=== PATIENT | female | born 1965 | race Caucasian/White ===

== ENCOUNTER 2024-12-09 15:46 | Inpatient (IN) | payer SELFPAY ==
[2024-12-09] MEDS ORDERED: Senokot S 8.6-50 MG TAB PO PRN (18:07)
[2024-12-09] MEDS ORDERED: Acetaminophen 325 MG TAB PO PRN (18:07)
[2024-12-09] MEDS ORDERED: Melatonin 3 MG TAB PO PRN (18:07)
[2024-12-09] MEDS ORDERED: Ondansetron PF 4 MG/2 ML Vial IVP PRN (18:07)
[2024-12-09] MEDS ORDERED: Calcium Carbonate 500 MG ChewTAB PO PRN (18:07)
[2024-12-09] MEDS ORDERED: VANCOMYCIN IVPB PRN (18:09)
[2024-12-09 18:30] LABS: #Basophils 0.03 10x3/uL (0.0-0.2); #Eosinophils Less than 0.03 10x3/uL (0.0-0.7); #Monocytes 0.94 10x3/uL (0.11-0.59); #Neutrophils 12.39 10x3/uL (1.40-6.50); %Basophils 0.2 % (0.0-1.0); %Eosinophils 0.1 % (0.0-10.0); %Lymphocytes 11.6 % (21.0-51.0); %Monocytes 6.2 % (0.0-10.0); %Neutrophils 81.3 % (42.0-75.0); Hematocrit 38.3 % (36.0-47.0); Hemoglobin 12.8 g/dL (12.0-16.0); Mean Corpuscular Hemoglobin 28.3 pg (27.0-31.0); Mean Corpuscular Volume 84.7 fL (78.0-98.0); Platelet Count 298 10x3/uL (130-400); Red Blood Cell (RBC) Count 4.52 mill/uL (4.20-5.40); White Blood Cell (WBC) Count 15.23 10x3/uL (4.8-10.8)
[2024-12-09 18:55] LABS: ALT (SGPT) 11 U/L (Less than 34); AST (SGOT) 15 U/L (11-34); Albumin 2.6 g/dL (3.1-4.5); Alkaline Phosphatase 135 U/L (40-110); Anion Gap 16 mmol/L (10-20); BUN (Urea Nitrogen) 21 mg/dL (9.8-20.1); Bilirubin, Total 0.2 mg/dL (0.3-1.2); Calc. Creatinine Clearance 0 mL/min (70-130); Calcium 9.5 mg/dL (7.8-10.44); Carbon Dioxide 29 mmol/L (23-31); Chloride 88 mmol/L (98-107); Globulin 5.1 g/dL (2.4-3.5); Glucose 625 mg/dL (80-115); Potassium 4.4 mmol/L (3.5-5.1); Sodium 129 mmol/L (136-145)
[2024-12-09 18:59] VITALS: BMI 24.2
[2024-12-09] MEDS ORDERED: HumaLOG 300 UNITS/3 ML VIAL SC PRN (19:02)
[2024-12-09] MEDS ORDERED: Glucagon 1 MG/ML KIT IM PRN (19:02)
[2024-12-09] MEDS ORDERED: Dextrose 50% Abboject 50 ML SYRINGE SLOW IVP PRN (19:02)
[2024-12-09] MEDS: Pantoprazole 40 MG DR.TAB PO SCH (19:55)
[2024-12-09] MEDS: Vancomycin 1.5 GM / NS 500ML VIAL-2-BAG IVPB SCH (19:56)
[2024-12-09] MEDS ORDERED: Vancomycin (BATCH) 1.75 GM Premix IVPB SCH (20:00)
[2024-12-09] MEDS ORDERED: Vancomycin 1 GM in Premix 1 BAG IVPB SCH (21:00)
[2024-12-09] MEDS ORDERED: Insulin Glargine 30 UNITS/0.3 ML VIAL SC SCH (21:30)
[2024-12-09] MEDS: Insulin Glargine 30 UNITS/0.3 ML VIAL SC SCH (21:42)
[2024-12-10] MEDS ORDERED: Insulin NPH Human Isophane 100 UNITS/ML (10 ML VIAL) SC SCH (09:00)
[2024-12-10] MEDS: Enoxaparin 40 MG (0.4 mL) SYRINGE SC SCH (10:29)
[2024-12-10] MEDS: Losartan 25 MG TAB PO SCH (10:40)
[2024-12-10 10:49] LABS: #Basophils 0.04 10x3/uL (0.0-0.2); #Eosinophils 0.06 10x3/uL (0.0-0.7); #Monocytes 0.80 10x3/uL (0.11-0.59); #Neutrophils 9.13 10x3/uL (1.40-6.50); %Basophils 0.3 % (0.0-1.0); %Eosinophils 0.5 % (0.0-10.0); %Lymphocytes 16.6 % (21.0-51.0); %Monocytes 6.6 % (0.0-10.0); %Neutrophils 75.3 % (42.0-75.0); Hematocrit 40.2 % (36.0-47.0); Hemoglobin 13.3 g/dL (12.0-16.0); Mean Corpuscular Hemoglobin 28.3 pg (27.0-31.0); Mean Corpuscular Volume 85.5 fL (78.0-98.0); Platelet Count 271 10x3/uL (130-400); Red Blood Cell (RBC) Count 4.70 mill/uL (4.20-5.40); White Blood Cell (WBC) Count 12.14 10x3/uL (4.8-10.8)
[2024-12-10 11:20] LABS: Anion Gap 19 mmol/L (10-20); BUN (Urea Nitrogen) 16 mg/dL (9.8-20.1); Calc. Creatinine Clearance 124 mL/min (70-130); Calcium 8.4 mg/dL (7.8-10.44); Carbon Dioxide 26 mmol/L (23-31); Chloride 96 mmol/L (98-107); Glucose 266 mg/dL (80-115); Potassium 3.6 mmol/L (3.5-5.1); Sodium 137 mmol/L (136-145)
[2024-12-10 11:21] LABS: Vancomycin, Random 14.2 ug/mL (See Comment)
[2024-12-10] MEDS ORDERED: Lidocaine 1% PF 5 ML VIAL ONE (13:20)
[2024-12-10] MEDS ORDERED: PROPOFOL 20 ML ONE (13:20)
[2024-12-10] MEDS ORDERED: Ondansetron PF 4 MG/2 ML Vial ONE (13:20)
[2024-12-10] MEDS ORDERED: fentaNYL PF 100 MCG/2 ML SYRINGE ONE ×2 (13:20→15:39)
[2024-12-10] MEDS ORDERED: HYDROmorphone 0.5 MG/0.5 ML SYRINGE ONE (15:39)
[2024-12-10] MEDS: Insulin NPH Human Isophane 100 UNITS/ML (10 ML VIAL) SC SCH (20:43)
[2024-12-11 05:59] LABS: #Basophils 0.04 10x3/uL (0.0-0.2); #Eosinophils Less than 0.03 10x3/uL (0.0-0.7); #Monocytes 0.90 10x3/uL (0.11-0.59); #Neutrophils 12.82 10x3/uL (1.40-6.50); %Basophils 0.3 % (0.0-1.0); %Eosinophils 0.1 % (0.0-10.0); %Lymphocytes 10.2 % (21.0-51.0); %Monocytes 5.8 % (0.0-10.0); %Neutrophils 82.9 % (42.0-75.0); Hematocrit 37.6 % (36.0-47.0); Hemoglobin 12.2 g/dL (12.0-16.0); Mean Corpuscular Hemoglobin 28.4 pg (27.0-31.0); Mean Corpuscular Volume 87.4 fL (78.0-98.0); Platelet Count 264 10x3/uL (130-400); Red Blood Cell (RBC) Count 4.30 mill/uL (4.20-5.40); White Blood Cell (WBC) Count 15.46 10x3/uL (4.8-10.8)
[2024-12-11] MEDS: Insulin Glargine 30 UNITS/0.3 ML VIAL SC SCH (15:49)
[2024-12-11] MEDS: glipiZIDE 5 MG TAB PO SCH (15:51)
[2024-12-11] MEDS: Senokot S 8.6-50 MG TAB PO SCH (21:08)
[2024-12-12 05:23] LABS: #Basophils Less than 0.03 10x3/uL (0.0-0.2); #Eosinophils 0.07 10x3/uL (0.0-0.7); #Monocytes 0.86 10x3/uL (0.11-0.59); #Neutrophils 6.63 10x3/uL (1.40-6.50); %Basophils 0.2 % (0.0-1.0); %Eosinophils 0.7 % (0.0-10.0); %Lymphocytes 19.1 % (21.0-51.0); %Monocytes 9.1 % (0.0-10.0); %Neutrophils 70.4 % (42.0-75.0); Hematocrit 36.7 % (36.0-47.0); Hemoglobin 12.3 g/dL (12.0-16.0); Mean Corpuscular Hemoglobin 28.7 pg (27.0-31.0); Mean Corpuscular Volume 85.7 fL (78.0-98.0); Platelet Count 248 10x3/uL (130-400); Red Blood Cell (RBC) Count 4.28 mill/uL (4.20-5.40); White Blood Cell (WBC) Count 9.43 10x3/uL (4.8-10.8)
[2024-12-12 05:40] LABS: Vancomycin, Random 13.9 ug/mL (See Comment)
[2024-12-12 05:45] LABS: Anion Gap 10 mmol/L (10-20); BUN (Urea Nitrogen) 18 mg/dL (9.8-20.1); Calc. Creatinine Clearance 111 mL/min (70-130); Calcium 8.5 mg/dL (7.8-10.44); Carbon Dioxide 29 mmol/L (23-31); Chloride 97 mmol/L (98-107); Glucose 249 mg/dL (80-115); Potassium 3.3 mmol/L (3.5-5.1); Sodium 133 mmol/L (136-145)
[2024-12-12] MEDS: Insulin Glargine 30 UNITS/0.3 ML VIAL SC SCH (08:03)
[2024-12-12] MEDS ORDERED: Insulin Glargine 30 UNITS/0.3 ML VIAL SC SCH (09:00)
[2024-12-13 06:18] LABS: #Basophils Less than 0.03 10x3/uL (0.0-0.2); #Eosinophils 0.05 10x3/uL (0.0-0.7); #Monocytes 0.64 10x3/uL (0.11-0.59); #Neutrophils 4.73 10x3/uL (1.40-6.50); %Basophils 0.3 % (0.0-1.0); %Eosinophils 0.7 % (0.0-10.0); %Lymphocytes 20.3 % (21.0-51.0); %Monocytes 9.3 % (0.0-10.0); %Neutrophils 68.8 % (42.0-75.0); Hematocrit 37.1 % (36.0-47.0); Hemoglobin 12.5 g/dL (12.0-16.0); Mean Corpuscular Hemoglobin 28.3 pg (27.0-31.0); Mean Corpuscular Volume 84.1 fL (78.0-98.0); Platelet Count 256 10x3/uL (130-400); Red Blood Cell (RBC) Count 4.41 mill/uL (4.20-5.40); White Blood Cell (WBC) Count 6.88 10x3/uL (4.8-10.8)
[2024-12-13 06:31] LABS: Anion Gap 12 mmol/L (10-20); BUN (Urea Nitrogen) 11 mg/dL (9.8-20.1); Calc. Creatinine Clearance 132 mL/min (70-130); Calcium 8.4 mg/dL (7.8-10.44); Carbon Dioxide 27 mmol/L (23-31); Chloride 100 mmol/L (98-107); Glucose 224 mg/dL (80-115); Magnesium 1.9 mg/dL (1.6-2.6); Potassium 3.4 mmol/L (3.5-5.1); Sodium 136 mmol/L (136-145)
[2024-12-13 08:51] VITALS: BMI 24.2
[2024-12-13] MEDS ORDERED: Insulin Glargine 30 UNITS/0.3 ML VIAL SC SCH (09:00)
[2024-12-13] MEDS: Magnesium 2 GM/50 ML(in water) 2 GM in Premix 1 BAG IVPB SCH (09:14)
[2024-12-13] MEDS: Insulin Glargine 30 UNITS/0.3 ML VIAL SC SCH (09:16)
[2024-12-13] MEDS: cefTRIAXone\\ROCEPHIN 2 GM in Sodium Chloride 0.9% 100 ML IVPB SCH (17:17)
[2024-12-14] MEDS: Insulin Glargine 30 UNITS/0.3 ML VIAL SC SCH (08:38)
[2024-12-14] MEDS: Enoxaparin 40 MG (0.4 mL) SYRINGE SC SCH (08:38)
[2024-12-15 06:44] LABS: #Basophils 0.03 10x3/uL (0.0-0.2); #Eosinophils 0.09 10x3/uL (0.0-0.7); #Monocytes 0.94 10x3/uL (0.11-0.59); #Neutrophils 9.25 10x3/uL (1.40-6.50); %Basophils 0.3 % (0.0-1.0); %Eosinophils 0.8 % (0.0-10.0); %Lymphocytes 13.1 % (21.0-51.0); %Monocytes 7.9 % (0.0-10.0); %Neutrophils 77.5 % (42.0-75.0); Hematocrit 35.3 % (36.0-47.0); Hemoglobin 12.1 g/dL (12.0-16.0); Mean Corpuscular Hemoglobin 28.7 pg (27.0-31.0); Mean Corpuscular Volume 83.6 fL (78.0-98.0); Platelet Count 312 10x3/uL (130-400); Red Blood Cell (RBC) Count 4.22 mill/uL (4.20-5.40); White Blood Cell (WBC) Count 11.92 10x3/uL (4.8-10.8)
[2024-12-15 06:50] LABS: Anion Gap 14 mmol/L (10-20); BUN (Urea Nitrogen) 17 mg/dL (9.8-20.1); Calc. Creatinine Clearance 138 mL/min (70-130); Calcium 8.8 mg/dL (7.8-10.44); Carbon Dioxide 28 mmol/L (23-31); Chloride 98 mmol/L (98-107); Glucose 222 mg/dL (80-115); Potassium 3.3 mmol/L (3.5-5.1); Sodium 137 mmol/L (136-145)
[2024-12-15] MEDS: Losartan 25 MG TAB PO SCH (10:29)
[2024-12-17] MEDS: Insulin Glargine 30 UNITS/0.3 ML VIAL SC SCH (09:25)
[2024-12-18] MEDS: Insulin Glargine 30 UNITS/0.3 ML VIAL SC SCH (09:50)
[2024-12-18 13:41] LABS: #Basophils 0.03 10x3/uL (0.0-0.2); #Eosinophils 0.09 10x3/uL (0.0-0.7); #Monocytes 0.56 10x3/uL (0.11-0.59); #Neutrophils 4.41 10x3/uL (1.40-6.50); %Basophils 0.4 % (0.0-1.0); %Eosinophils 1.3 % (0.0-10.0); %Lymphocytes 25.4 % (21.0-51.0); %Monocytes 8.2 % (0.0-10.0); %Neutrophils 64.3 % (42.0-75.0); Hematocrit 35.2 % (36.0-47.0); Hemoglobin 12.3 g/dL (12.0-16.0); Mean Corpuscular Hemoglobin 29.6 pg (27.0-31.0); Mean Corpuscular Volume 84.6 fL (78.0-98.0); Platelet Count 366 10x3/uL (130-400); Red Blood Cell (RBC) Count 4.16 mill/uL (4.20-5.40); White Blood Cell (WBC) Count 6.86 10x3/uL (4.8-10.8)
[2024-12-18 13:59] LABS: Anion Gap 15 mmol/L (10-20); BUN (Urea Nitrogen) 18 mg/dL (9.8-20.1); Calc. Creatinine Clearance 118 mL/min (70-130); Calcium 8.9 mg/dL (7.8-10.44); Carbon Dioxide 29 mmol/L (23-31); Chloride 94 mmol/L (98-107); Glucose 235 mg/dL (80-115); Potassium 3.5 mmol/L (3.5-5.1); Sodium 134 mmol/L (136-145)
[2024-12-18 14:00] LABS: CRP, High Sensitivity at Bryan 1.54 mg/dL (< or = 0.5)
[2024-12-18] MEDS: cefTRIAXone\\ROCEPHIN 2 GM in Sodium Chloride 0.9% 100 ML IVPB SCH (16:11)
[2024-12-18] MEDS: metroNIDAZOLE 500 MG TAB PO SCH (16:12)
[2024-12-18 20:50] LABS: Potassium 4.1 mmol/L (3.5-5.1)
[2024-12-19 05:28] LABS: #Basophils 0.04 10x3/uL (0.0-0.2); #Eosinophils 0.13 10x3/uL (0.0-0.7); #Monocytes 0.72 10x3/uL (0.11-0.59); #Neutrophils 3.73 10x3/uL (1.40-6.50); %Basophils 0.6 % (0.0-1.0); %Eosinophils 2.0 % (0.0-10.0); %Lymphocytes 27.9 % (21.0-51.0); %Monocytes 11.2 % (0.0-10.0); %Neutrophils 57.8 % (42.0-75.0); Hematocrit 35.1 % (36.0-47.0); Hemoglobin 11.9 g/dL (12.0-16.0); Mean Corpuscular Hemoglobin 28.5 pg (27.0-31.0); Mean Corpuscular Volume 84.2 fL (78.0-98.0); Platelet Count 338 10x3/uL (130-400); Red Blood Cell (RBC) Count 4.17 mill/uL (4.20-5.40); White Blood Cell (WBC) Count 6.45 10x3/uL (4.8-10.8)
[2024-12-19 05:45] LABS: Anion Gap 12 mmol/L (10-20); BUN (Urea Nitrogen) 17 mg/dL (9.8-20.1); Calc. Creatinine Clearance 106 mL/min (70-130); Calcium 9.2 mg/dL (7.8-10.44); Carbon Dioxide 28 mmol/L (23-31); Chloride 101 mmol/L (98-107); Glucose 169 mg/dL (80-115); Potassium 4.2 mmol/L (3.5-5.1); Sodium 137 mmol/L (136-145)
[2024-12-20 08:16] LABS: #Basophils 0.04 10x3/uL (0.0-0.2); #Eosinophils 0.11 10x3/uL (0.0-0.7); #Monocytes 0.58 10x3/uL (0.11-0.59); #Neutrophils 3.88 10x3/uL (1.40-6.50); %Basophils 0.6 % (0.0-1.0); %Eosinophils 1.7 % (0.0-10.0); %Lymphocytes 28.4 % (21.0-51.0); %Monocytes 9.0 % (0.0-10.0); %Neutrophils 59.8 % (42.0-75.0); Hematocrit 38.5 % (36.0-47.0); Hemoglobin 12.8 g/dL (12.0-16.0); Mean Corpuscular Hemoglobin 28.4 pg (27.0-31.0); Mean Corpuscular Volume 85.4 fL (78.0-98.0); Platelet Count 402 10x3/uL (130-400); Red Blood Cell (RBC) Count 4.51 mill/uL (4.20-5.40); White Blood Cell (WBC) Count 6.48 10x3/uL (4.8-10.8)
[2024-12-20 08:39] LABS: Anion Gap 14 mmol/L (10-20); BUN (Urea Nitrogen) 16 mg/dL (9.8-20.1); Calc. Creatinine Clearance 113 mL/min (70-130); Calcium 9.3 mg/dL (7.8-10.44); Carbon Dioxide 30 mmol/L (23-31); Chloride 98 mmol/L (98-107); Glucose 196 mg/dL (80-115); Potassium 4.0 mmol/L (3.5-5.1); Sodium 138 mmol/L (136-145)
[2024-12-20] MEDS ORDERED: Potassium Chloride 20 MEQ in Premix 1 BAG IVPB PRN (12:45)
[2024-12-20] MEDS ORDERED: PHOS-NAK 1 PKT PACK PO PRN (12:45)
[2024-12-20] MEDS ORDERED: Magnesium 2 GM/50 ML(in water) 2 GM in Premix 1 BAG IVPB PRN (12:45)
[2024-12-21 14:13] VITALS: BP 155/80; TEMP 97.7
== END 2024-12-21 13:25 | disposition home or self-care (01) | DRG 854 ==
LOC: SURG A 16:35
PROVIDERS: ADMIT Internal Medicine; ATTEND Internal Medicine
PROC: 0K9V0ZZ Drainage of Right Foot Muscle, Open Approach (ICD-10-PCS; 2024-12-09)
PROC: 05HY33Z Insertion of Infusion Device into Upper Vein, Percutaneous Approach (ICD-10-PCS; principal; 2024-12-10)
PROC: 3E03329 Introduction of Other Anti-infective into Peripheral Vein, Percutaneous Approach (ICD-10-PCS; principal; 2024-12-10)
DX: A41.9 Sepsis, unspecified organism (principal); E11.52 Type 2 diabetes mellitus with diabetic peripheral angiopathy with gangrene; I96 Gangrene, not elsewhere classified; L02.611 Cutaneous abscess of right foot; L03.115 Cellulitis of right lower limb; M86.8X7 Other osteomyelitis, ankle and foot; E87.1 Hypo-osmolality and hyponatremia; Z66 Do not resuscitate; E87.6 Hypokalemia; E11.628 Type 2 diabetes mellitus with other skin complications; E83.42 Hypomagnesemia; R03.0 Elevated blood-pressure reading, without diagnosis of hypertension; Z79.899 Other long term (current) drug therapy
CPT/HCPCS: 36415; 36416; 80048; 80053; 80202; 83036; 83735; 85025; 86141; 87040; 87070; 87077; 87205; 93923; 97139; J0665; J0696; J1100; J1171; J1650; J1815; J2250; J2270; J2405; J2543; J2704; J3373; J3475; J7030; J7050